=== PATIENT | female | born 1960 | race Caucasian/White ===

== ENCOUNTER 2020-01-16 09:49 | Emergency (ER) | payer OTHER ==
[~2020-01-16] VITALS: Ht 167.6 cm; Wt 108.0 kg
[2020-01-16 09:50] VITALS: BP 128/56
== END 2020-01-16 10:28 | disposition left against medical advice (07) ==
LOC: ER 09:49
DX: R05 Cough (principal); H92.01 Otalgia, right ear; R51.9 Headache, unspecified; Z53.21 Procedure and treatment not carried out due to patient leaving prior to being seen by health care provider

== ENCOUNTER 2020-01-21 10:08 | Emergency (ER) | payer OTHER ==
[~2020-01-21] VITALS: Ht 167.6 cm; Wt 108.0 kg
[2020-01-21] MEDS ORDERED: ZPAK PO (10:42)
[2020-01-21] MEDS ORDERED: PROMETH-CODEIN 65 ML PO (10:42)
[2020-01-21 10:43] VITALS: BP 160/68
== END 2020-01-21 10:55 | disposition home or self-care (01) ==
LOC: ER 10:08
DX: J06.9 Acute upper respiratory infection, unspecified (principal); F17.210 Nicotine dependence, cigarettes, uncomplicated; Z20.828 Contact with and (suspected) exposure to other viral communicable diseases